=== PATIENT | female | born 1970 | race Caucasian/White ===

== ENCOUNTER 2020-03-03 12:03 | Emergency (ER) | payer OTHER ==
[~2020-03-03] VITALS: Ht 152.4 cm; Wt 54.4 kg
[~2020-03-03 12:03] MED LIST: CARAFATE1 GM PO; EQUETRO200 MG PO; HORIZANT300 MG PO; LEVO-T25 MCG PO; NAPROXEN SODIU220 MG PO; NATURE'S BLEND400 I2 PO; PEPCID AC20 M2 PO; SUPER CALCIUM600 MG PO; TYMLOS1.56 ML IM
[2020-03-03 12:14] VITALS: Ht 152.4 cm; Wt 54.4 kg
[2020-03-03 15:33] VITALS: BP 118/86
== END 2020-03-03 15:33 | disposition home or self-care (01) ==
LOC: ED 12:03
DX: S52.022A Displaced fracture of olecranon process without intraarticular extension of left ulna, initial encounter for closed fracture (principal); M79.10 Myalgia, unspecified site; W01.198A Fall on same level from slipping, tripping and stumbling with subsequent striking against other object, initial encounter; Y93.89 Activity, other specified; Y92.89 Other specified places as the place of occurrence of the external cause; Y99.8 Other external cause status